=== PATIENT | male | born 1955 | race Caucasian/White ===

== ENCOUNTER 2024-11-19 14:41 | Emergency (ER) | payer MEDICARE ==
[~2024-11-19] VITALS: Ht 170.2 cm; Wt 78.5 kg
[2024-11-19 15:05] VITALS: TEMP 98.5
[2024-11-19] MEDS ORDERED: FLUORESCEIN SOD(OPTH) 1 MG STRP ONE (16:09)
[2024-11-19] MEDS: FLUORESCEIN SOD(OPTH) 1 MG STRP OP ONE (16:10)
[2024-11-19] MEDS: TETRAHYDROZOLINE HCL(OPTH) 30 ML BOTTLE OP ONE (16:10)
[2024-11-19] MEDS ORDERED: GENTAMICIN SULFA5 ML OS (16:26)
[2024-11-19 16:35] VITALS: PULSE 60; RESP 17; O2SAT 95
[2024-11-20] MEDS ORDERED: FLUOROMETHOLONE 0.1% OPTHMALMIC SUSP 5 ML BTL OP SCH (09:00)
== END 2024-11-19 16:38 | disposition home or self-care (01) ==
LOC: FSED 14:56
DX: R20.0 Anesthesia of skin (principal); S05.02XA Injury of conjunctiva and corneal abrasion without foreign body, left eye, initial encounter; X58.XXXA Exposure to other specified factors, initial encounter; R53.1 Weakness; R51.9 Headache, unspecified; I10 Essential (primary) hypertension; E11.9 Type 2 diabetes mellitus without complications; E78.5 Hyperlipidemia, unspecified
CPT/HCPCS: 70450; 80053; 80307; 81003; 84484; 85025; 93005; 99283

== ENCOUNTER 2025-01-19 10:37 | Emergency (ER) | payer MEDICARE ==
[~2025-01-19] VITALS: Ht 170.2 cm; Wt 77.7 kg
[~2025-01-19 10:37] MED LIST: GENTAMICIN SULFA5 ML OS
[2025-01-19] MEDS ORDERED: METFORMIN HCL500 M2 PO (13:00)
[2025-01-19 13:32] VITALS: PULSE 72; RESP 18; TEMP 97.4; O2SAT 97
== END 2025-01-19 13:32 | disposition home or self-care (01) ==
LOC: FSED 10:43
DX: R07.81 Pleurodynia (principal); S20.211A Contusion of right front wall of thorax, initial encounter; W01.0XXA Fall on same level from slipping, tripping and stumbling without subsequent striking against object, initial encounter; Y92.89 Other specified places as the place of occurrence of the external cause; I70.0 Atherosclerosis of aorta; M19.011 Primary osteoarthritis, right shoulder; I10 Essential (primary) hypertension; E11.9 Type 2 diabetes mellitus without complications; E78.5 Hyperlipidemia, unspecified
CPT/HCPCS: 71101; 99283